=== PATIENT | female | born 1965 | race Caucasian/White ===

== ENCOUNTER 2016-07-03 13:03 | Emergency (ER) | payer OTHER, BC, MEDICARE ==
[~2016-07-03] VITALS: Ht 170.1 cm; Wt 90.7 kg
[~2016-07-03 13:03] MED LIST: CARDIZEM CD120 MG PO; CARDOXIN0.25 MG PO; CELEXA40 MG PO; CLONAZEPAM0.5 MG PO; COZAAR50 MG PO; FOLIC ACID1 MG PO; IBU-8800 MG PO; KEPPRA500 MG PO; LAMICTAL200 MG PO; LAMOTRIGINE150 MG PO; OXCARBAZEPINE300 MG PO; PERCOCET 325 MG1 TA7 PO; PROTONIX40 MG PO; SEROQUEL XR50 MG PO; ZANTAC150 MG PO; ZOFRAN4 MG PO
[2016-07-03 14:21] LABS: BASO % 0.6 % (0.0-1.0); EOS % 0.8 % (1.0-4.0); HEMATOCRIT 38.5 % (37.0-47.0); HEMOGLOBIN 12.6 g/dl (12.0-16.0); LYMPH # 1.2 10*3/uL (1.3-4.4); LYMPH % 23.2 % (27.0-41.0); MEAN CELL VOLUME 85.7 fl (81.0-99.0); MEAN CORPUSCULAR HGB 28.1 pg (27.0-31.0); MEAN CORPUSCULAR HGB CONC 32.7 g/dl (33.0-37.0); MEAN PLATELET VOLUME 8.5 fl (9.6-12.3); MONO # 0.4 10*3/uL (0.1-1.0); MONO % 7.5 % (3.0-9.0); NEUT # 3.5 10*3/uL (2.3-7.9); NEUT % 67.7 % (47.0-73.0); PLATELET COUNT AUTOMATED 295 10*3/uL (130-400); RED BLOOD COUNT 4.49 10*6/uL (4.10-5.10); RED CELL DISTRI WIDTH 13.3 % (0-14.5); WHITE BLOOD COUNT 5.1 10*3/uL (4.8-10.8)
[2016-07-03 14:29] LABS: INTERNATIONAL NORM RATIO 1.4 (2.0-3.5); PROTHROMBIN TIME 14.5 SECONDS (9.0-12.4)
[2016-07-03 14:36] LABS: ALBUMIN 3.6 gm/dl (3.1-4.5); ALKALINE PHOSPHATASE 102 U/L (45-117); BILIRUBIN, TOTAL 0.3 mg/dl (0.2-1.0); BUN 8 mg/dl (7-24); CARBON DIOXIDE 30 mmol/L (21-32); CHLORIDE 96 mmol/L (98-107); EST GLOM FILT AFRICAN AMERICAN > 60 ml/min; GLUCOSE 90 mg/dL (65-99); POTASSIUM 4.1 mmol/L (3.5-5.1); SGOT/AST 13 IU/L (3-35); SGPT/ALT 19 U/L (12-78); SODIUM 134 mmol/L (136-145); TOTAL PROTEIN 7.1 gm/dL (6.4-8.2)
[2016-07-03] MEDS ORDERED: COREG25 MG PO (15:11)
[2016-07-03] MEDS ORDERED: TRILEPTAL300 MG PO (15:12)
[2016-07-03] MEDS ORDERED: APRESOLINE25 MG PO (15:12)
[2016-07-03] MEDS ORDERED: VIIBRYD40 PO (15:13)
[2016-07-03] MEDS ORDERED: NATURE'S BLEND F1 MG PO (15:13)
[2016-07-03] MEDS ORDERED: VALIUM5 MG PO (15:14)
[2016-07-03] MEDS ORDERED: WARFARIN2 MG PO (15:15)
[2016-07-03] MEDS ORDERED: WARFARIN SOD5 MG PO (15:16)
[2016-07-03] MEDS ORDERED: FAMVIR250 MG PO (15:17)
[2016-07-03] MEDS ORDERED: CALCIUM + VITA1 EAC2 PO (15:18)
[2016-07-03 16:00] LABS: BILIRUBIN NEGATIVE (NEGATIVE); BLOOD NEGATIVE (NEGATIVE); CLARITY CLEAR (CLEAR); COLOR YELLOW (YELLOW); GLUCOSE NEGATIVE (NEGATIVE); KETONE NEGATIVE (NEGATIVE); LEUKO ESTERASE NEGATIVE (NEGATIVE); NITRITE NEGATIVE (NEGATIVE); PROTEIN NEGATIVE (NEGATIVE); SPECIFIC GRAVITY <= 1.005 (1.005-1.030); UROBILINOGEN 0.2 E.U./dl (0.2-1.0)
[2016-07-03 16:23] LABS: RBC 0-2 rbc/hpf (0-2); URINE REFLEX COMMENT NO (NO)
== END 2016-07-03 16:57 | disposition home or self-care (01) ==
LOC: ED 13:03
PROVIDERS: Emergency Medicine; Student in an Organized Health Care Education/Training Program
DX: M54.6 Pain in thoracic spine (principal); M54.2 Cervicalgia; M25.511 Pain in right shoulder; R51 Headache; I10 Essential (primary) hypertension; Z79.01 Long term (current) use of anticoagulants; Z79.899 Other long term (current) drug therapy; Z88.0 Allergy status to penicillin; Z88.1 Allergy status to other antibiotic agents; Z88.8 Allergy status to other drugs, medicaments and biological substances; V89.2XXA Person injured in unspecified motor-vehicle accident, traffic, initial encounter; Y93.89 Activity, other specified; Y92.89 Other specified places as the place of occurrence of the external cause; Y99.9 Unspecified external cause status

== ENCOUNTER 2017-01-16 12:51 | Emergency (ER) | payer BC, MEDICARE ==
[~2017-01-16] VITALS: Ht 167.6 cm; Wt 98.0 kg
[~2017-01-16 12:51] MED LIST changes: +APRESOLINE25 MG PO; +CALCIUM + VITA1 EAC2 PO; +COREG25 MG PO; +COZAAR100 MG PO; -COZAAR50 MG PO; +FAMVIR250 MG PO; +NATURE'S BLEND F1 MG PO; +TRILEPTAL300 MG PO; +VALIUM5 MG PO; +VIIBRYD40 PO; +WARFARIN SOD5 MG PO; +WARFARIN2 MG PO
[2017-01-16 13:27] LABS: BILIRUBIN 2+ (NEGATIVE); BLOOD NEGATIVE (NEGATIVE); CLARITY SL CLOUDY (CLEAR); GLUCOSE NEGATIVE (NEGATIVE); KETONE 1+ (NEGATIVE); NITRITE NEGATIVE (NEGATIVE); PROTEIN 1+ (NEGATIVE)
[2017-01-16 13:28] LABS: COLOR YELLOW (YELLOW)
[2017-01-16 13:31] LABS: BASO % 0.5 % (0.0-1.0); EOS # 0.1 10*3/uL (0.0-0.4); EOS % 0.6 % (1.0-4.0); HEMOGLOBIN 11.9 g/dl (12.0-16.0); LYMPH # 1.2 10*3/uL (1.3-4.4); LYMPH % 14.4 % (27.0-41.0); MEAN CELL VOLUME 87.2 fl (81.0-99.0); MEAN CORPUSCULAR HGB 28.8 pg (27.0-31.0); MEAN CORPUSCULAR HGB CONC 33.1 g/dl (33.0-37.0); MEAN PLATELET VOLUME 8.9 fl (9.6-12.3); MONO # 0.5 10*3/uL (0.1-1.0); MONO % 6.4 % (3.0-9.0); NEUT # 6.6 10*3/uL (2.3-7.9); NEUT % 77.9 % (47.0-73.0); PLATELET COUNT AUTOMATED 298 10*3/uL (130-400); RED BLOOD COUNT 4.13 10*6/uL (4.10-5.10); RED CELL DISTRI WIDTH 12.4 % (0-14.5); WHITE BLOOD COUNT 8.4 10*3/uL (4.8-10.8)
[2017-01-16 13:32] LABS: MUCOUS 2+; RBC 0-2 rbc/hpf (0-2)
[2017-01-16 13:33] LABS: BACTERIA TRACE; LEUKO ESTERASE TRACE (NEGATIVE); URINE REFLEX COMMENT YES (NO)
[2017-01-16 13:44] LABS: ALBUMIN 3.4 gm/dl (3.1-4.5); ALKALINE PHOSPHATASE 92 U/L (45-117); BILIRUBIN, TOTAL 0.5 mg/dl (0.2-1.0); BUN 11 mg/dl (7-24); C-REACTIVE PROTEIN 5.29 MG/DL (0-0.3); CARBON DIOXIDE 31 mmol/L (21-32); CHLORIDE 97 mmol/L (98-107); EST GLOM FILT AFRICAN AMERICAN > 60 ml/min; GLUCOSE 108 mg/dL (65-99); MAGNESIUM 1.9 mg/dL (1.5-2.1); SGOT/AST 15 IU/L (3-35); SGPT/ALT 17 U/L (12-78); SODIUM 132 mmol/L (136-145); TOTAL PROTEIN 7.6 gm/dL (6.4-8.2)
[2017-01-16 13:48] LABS: TROPONIN I 0.564 ng/ml (<0.045)
[2017-01-16 15:22] LABS: INTERNATIONAL NORM RATIO 1.6 (2.0-3.5); PROTHROMBIN TIME 17.5 SECONDS (9.0-12.4)
== END 2017-01-16 16:17 | disposition short-term general hospital (02) ==
LOC: ED 12:51
PROVIDERS: Student in an Organized Health Care Education/Training Program
DX: I21.4 Non-ST elevation (NSTEMI) myocardial infarction (principal); Z88.0 Allergy status to penicillin; Z88.1 Allergy status to other antibiotic agents; Z88.8 Allergy status to other drugs, medicaments and biological substances; Z79.899 Other long term (current) drug therapy

== ENCOUNTER 2017-01-22 15:01 | Inpatient (IN) | payer BC, MEDICARE ==
[~2017-01-22] VITALS: Ht 167.6 cm; Wt 98.5 kg
[2017-01-22] VITALS (7 sets, daily range): BP systolic 95–137; BP diastolic 58–113
[2017-01-22 15:50] LABS: BASO % 0.7 % (0.0-1.0); EOS # 0.1 10*3/uL (0.0-0.4); EOS % 1.5 % (1.0-4.0); HEMATOCRIT 36.4 % (37.0-47.0); LYMPH # 1.8 10*3/uL (1.3-4.4); LYMPH % 30.2 % (27.0-41.0); MEAN CELL VOLUME 85.8 fl (81.0-99.0); MEAN CORPUSCULAR HGB 28.3 pg (27.0-31.0); MEAN PLATELET VOLUME 9.1 fl (9.6-12.3); MONO # 0.3 10*3/uL (0.1-1.0); MONO % 5.4 % (3.0-9.0); NEUT # 3.7 10*3/uL (2.3-7.9); PLATELET COUNT AUTOMATED 355 10*3/uL (130-400); RED BLOOD COUNT 4.24 10*6/uL (4.10-5.10); RED CELL DISTRI WIDTH 12.6 % (0-14.5); WHITE BLOOD COUNT 5.9 10*3/uL (4.8-10.8)
[2017-01-22 15:58] LABS: INTERNATIONAL NORM RATIO 2.8 (2.0-3.5); PROTHROMBIN TIME 31.2 SECONDS (9.0-12.4)
[2017-01-22 16:09] LABS: ALBUMIN 3.6 gm/dl (3.1-4.5); ALKALINE PHOSPHATASE 111 U/L (45-117); BILIRUBIN, TOTAL 0.2 mg/dl (0.2-1.0); BUN 13 mg/dl (7-24); CARBON DIOXIDE 28 mmol/L (21-32); CHLORIDE 97 mmol/L (98-107); CKMB 0.7 ng/ml (0.5-3.6); CPK 58 U/L (26-192); EST GLOM FILT AFRICAN AMERICAN > 60 ml/min; GLUCOSE 106 mg/dL (65-99); LDH 206 U/L (84-246); MAGNESIUM 1.8 mg/dL (1.5-2.1); POTASSIUM 4.1 mmol/L (3.5-5.1); SGOT/AST 66 IU/L (3-35); SGPT/ALT 75 U/L (12-78); SODIUM 134 mmol/L (136-145); TOTAL PROTEIN 7.6 gm/dL (6.4-8.2)
[2017-01-22 16:13] LABS: TROPONIN I 0.115 ng/ml (<0.045)
[2017-01-22] MEDS ORDERED: ASPIRIN LOW DOS81 MG PO (18:39)
[2017-01-22] MEDS ORDERED: PLAVIX75 M1 PO (18:40)
[2017-01-22] MEDS ORDERED: PRILOSEC20 M1 PO (18:42)
[2017-01-22] MEDS ORDERED: LIPITOR80 MG PO (18:43)
[2017-01-22] MEDS ORDERED: PROCARDIA XL90 MG PO (18:48)
[2017-01-22 18:49] LABS: CKMB 0.8 ng/ml (0.5-3.6)
[2017-01-22] MEDS ORDERED: ALDACTONE25 M1 PO (18:56)
[2017-01-22] MEDS ORDERED: LOVENOX30 MG/0.3 SQ (18:59)
[2017-01-22 21:34] LABS: CKMB 0.6 ng/ml (0.5-3.6)
[2017-01-23] VITALS: BP 123/89
[2017-01-23 06:09] LABS: BASO % 0.8 % (0.0-1.0); EOS # 0.1 10*3/uL (0.0-0.4); EOS % 2.1 % (1.0-4.0); HEMATOCRIT 32.2 % (37.0-47.0); HEMOGLOBIN 10.5 g/dl (12.0-16.0); LYMPH # 1.9 10*3/uL (1.3-4.4); LYMPH % 36.3 % (27.0-41.0); MEAN CELL VOLUME 87.5 fl (81.0-99.0); MEAN CORPUSCULAR HGB 28.5 pg (27.0-31.0); MEAN CORPUSCULAR HGB CONC 32.6 g/dl (33.0-37.0); MEAN PLATELET VOLUME 8.9 fl (9.6-12.3); MONO # 0.5 10*3/uL (0.1-1.0); MONO % 8.7 % (3.0-9.0); NEUT # 2.7 10*3/uL (2.3-7.9); NEUT % 51.7 % (47.0-73.0); PLATELET COUNT AUTOMATED 293 10*3/uL (130-400); RED BLOOD COUNT 3.68 10*6/uL (4.10-5.10); RED CELL DISTRI WIDTH 12.7 % (0-14.5); WHITE BLOOD COUNT 5.2 10*3/uL (4.8-10.8)
[2017-01-23 06:21] LABS: CHLORIDE 96 mmol/L (98-107); POTASSIUM 3.9 mmol/L (3.5-5.1); SODIUM 132 mmol/L (136-145)
[2017-01-23 06:26] LABS: BUN 15 mg/dl (7-24); CARBON DIOXIDE 27 mmol/L (21-32); EST GLOM FILT AFRICAN AMERICAN > 60 ml/min; GLUCOSE 82 mg/dL (65-99); MAGNESIUM 1.8 mg/dL (1.5-2.1); PHOSPHOROUS 5.2 mg/dL (2.5-4.9)
[2017-01-23 06:38] LABS: INTERNATIONAL NORM RATIO 2.6 (2.0-3.5); PROTHROMBIN TIME 29.4 SECONDS (9.0-12.4)
[2017-01-23 08:00] VITALS: BP 118/84
[2017-01-23 09:57] VITALS: BP 118/84
[2017-01-23 12:00] VITALS: BP 102/72
== END 2017-01-23 15:00 | disposition home or self-care (01) | DRG 880 ==
LOC: ED 15:01 → EDHOLD 17:03 → 5E 17:03
PROVIDERS: Family Medicine; Physician Assistant
DX: F41.9 Anxiety disorder, unspecified (principal); I42.9 Cardiomyopathy, unspecified; T85.898A Other specified complication of other internal prosthetic devices, implants and grafts, initial encounter; I10 Essential (primary) hypertension; K21.9 Gastro-esophageal reflux disease without esophagitis; R07.89 Other chest pain; I25.10 Atherosclerotic heart disease of native coronary artery without angina pectoris; I25.2 Old myocardial infarction; Z98.61 Coronary angioplasty status

== ENCOUNTER 2017-03-30 06:51 | Emergency (ER) | payer BC, MEDICARE ==
[~2017-03-30] VITALS: Ht 167.6 cm; Wt 99.8 kg
[~2017-03-30 06:51] MED LIST changes: +ALDACTONE25 M1 PO; +ASPIRIN LOW DOS81 MG PO; +LIPITOR80 MG PO; +LOVENOX30 MG/0.3 SQ; +PLAVIX75 M1 PO; +PRILOSEC20 M1 PO; +PROCARDIA XL90 MG PO
[2017-03-30 07:14] LABS: BILIRUBIN NEGATIVE (NEGATIVE); BLOOD TRACE-INTACT (NEGATIVE); CLARITY CLOUDY (CLEAR); COLOR YELLOW (YELLOW); GLUCOSE NEGATIVE (NEGATIVE); KETONE NEGATIVE (NEGATIVE); NITRITE POSITIVE (NEGATIVE)
[2017-03-30 07:25] LABS: BASO % 0.8 % (0.0-1.0); EOS # 0.2 10*3/uL (0.0-0.4); EOS % 2.9 % (1.0-4.0); HEMATOCRIT 33.8 % (37.0-47.0); HEMOGLOBIN 11.3 g/dl (12.0-16.0); LYMPH # 1.3 10*3/uL (1.3-4.4); LYMPH % 25.2 % (27.0-41.0); MEAN CELL VOLUME 85.4 fl (81.0-99.0); MEAN CORPUSCULAR HGB 28.5 pg (27.0-31.0); MEAN CORPUSCULAR HGB CONC 33.4 g/dl (33.0-37.0); MEAN PLATELET VOLUME 8.2 fl (9.6-12.3); MONO # 0.4 10*3/uL (0.1-1.0); NEUT # 3.2 10*3/uL (2.3-7.9); NEUT % 62.9 % (47.0-73.0); PLATELET COUNT AUTOMATED 265 10*3/uL (130-400); RED BLOOD COUNT 3.96 10*6/uL (4.10-5.10); RED CELL DISTRI WIDTH 13.1 % (0-14.5); WHITE BLOOD COUNT 5.1 10*3/uL (4.8-10.8)
[2017-03-30 07:33] LABS: LEUKO ESTERASE 3+ (NEGATIVE)
[2017-03-30 07:37] LABS: BACTERIA 3+; WBC TNTC wbc/hpf (0-5)
[2017-03-30 07:43] LABS: ALBUMIN 3.4 gm/dl (3.1-4.5); ALKALINE PHOSPHATASE 110 U/L (45-117); BUN 6 mg/dl (7-24); CHLORIDE 96 mmol/L (98-107); CREATININE 0.86 mg/dL (0.55-1.02); LIPASE 148 U/L (73-393); POTASSIUM 4.3 mmol/L (3.5-5.1); SGOT/AST 16 IU/L (3-35); SGPT/ALT 25 U/L (12-78); SODIUM 131 mmol/L (136-145); TOTAL PROTEIN 7.2 gm/dL (6.4-8.2)
[2017-03-30] MEDS ORDERED: PYRIDIUM200 M1 PO (08:02)
== END 2017-03-30 09:21 | disposition home or self-care (01) ==
LOC: ED 06:51
PROVIDERS: Student in an Organized Health Care Education/Training Program
DX: N39.0 Urinary tract infection, site not specified (principal); R31.9 Hematuria, unspecified; I10 Essential (primary) hypertension; I25.10 Atherosclerotic heart disease of native coronary artery without angina pectoris; I48.91 Unspecified atrial fibrillation; J45.909 Unspecified asthma, uncomplicated; J44.9 Chronic obstructive pulmonary disease, unspecified; Z88.0 Allergy status to penicillin; Z88.1 Allergy status to other antibiotic agents; Z88.8 Allergy status to other drugs, medicaments and biological substances; Z79.899 Other long term (current) drug therapy; Z79.02 Long term (current) use of antithrombotics/antiplatelets; Z79.82 Long term (current) use of aspirin

== ENCOUNTER → 2017-06-20 | Outpatient (CLI) | payer BC, MEDICARE ==
[~2017-06-20] MED LIST changes: +PYRIDIUM200 M1 PO
[2017-06-20 08:37] LABS: ALBUMIN 3.6 gm/dl (3.1-4.5); BILIRUBIN, DIRECT 0.1 mg/dL (0.0-0.2); TOTAL PROTEIN 7.5 gm/dL (6.4-8.2)
== END | disposition home or self-care (01) ==
LOC: LAB 07:39
DX: Z51.89 Encounter for other specified aftercare (principal); Z11.59 Encounter for screening for other viral diseases; I25.119 Atherosclerotic heart disease of native coronary artery with unspecified angina pectoris

== ENCOUNTER 2018-11-20 20:42 | Emergency (ER) | payer MEDICARE, BC ==
[~2018-11-20] VITALS: Ht 167.6 cm; Wt 98.9 kg
--- NOTE | ~2018-11-20 | EKG ---
[place], [place] ELECTROCARDIOGRAM REPORT NAME: MARY JANE LOZADA UNIT #: [id number] ROOM: DOCTOR: EPIPHANY DRAFT REPORT BIRTHDATE: [birth year] [facility] Test Date: 2018-11-20 Test Time: 21:43:58 Pat Name: MARY JANE LOZADA Department: Room: Gender: F Jack Spinner: SS RESP : 1965 Requested By: JENNIFER FAITH Order Number: [id number] Reading MD: Johanna Adams MD Measurements Intervals Woodman Rate: 59 P: 38 SC: 198 QRS: 27 QRSD: 111 T: 269 QT: 408 QTc: 405 Interpretive Statements Sinus rhythm Probable left atrial enlargement Abnormal R-wave progression, late transition Nonspecific T abnormalities, diffuse leads Electronically Signed On 12-03-2018 3:32:45 PDT by Johanna Adams MD CM:EKGRPT:ELECTROCARDIOGRAM REPORT [id number] JENNIFER FAITH MD EPIPHANY DRAFT REPORT JENNIFER FAITH MD
[2018-11-20 21:49] LABS: BASO % 0.6 % (0.0-1.0); EOS # 0.2 10*3/uL (0.0-0.4); EOS % 4.9 % (1.0-4.0); HEMATOCRIT 35.1 % (37.0-47.0); HEMOGLOBIN 11.9 g/dl (12.0-16.0); LYMPH # 1.4 10*3/uL (1.3-4.4); MEAN CELL VOLUME 87.8 fl (81.0-99.0); MEAN CORPUSCULAR HGB 29.8 pg (27.0-31.0); MEAN CORPUSCULAR HGB CONC 33.9 g/dl (33.0-37.0); MEAN PLATELET VOLUME 9.1 fl (9.6-12.3); MONO # 0.4 10*3/uL (0.1-1.0); MONO % 9.2 % (3.0-9.0); NEUT # 2.6 10*3/uL (2.3-7.9); NEUT % 56.3 % (47.0-73.0); PLATELET COUNT AUTOMATED 291 10*3/uL (130-400); RED CELL DISTRI WIDTH 13.4 % (0-14.5); WHITE BLOOD COUNT 4.7 10*3/uL (4.8-10.8)
[2018-11-20 22:03] LABS: INTERNATIONAL NORM RATIO 2.5 (2.0-3.5)
[2018-11-20 22:53] LABS: ALBUMIN 3.6 gm/dl (3.1-4.5); ALKALINE PHOSPHATASE 118 U/L (45-117); BUN 8 mg/dl (7-24); CHLORIDE 97 mmol/L (98-107); CREATININE 0.82 mg/dL (0.55-1.02); POTASSIUM 3.7 mmol/L (3.5-5.1); SGOT/AST 13 IU/L (3-35); SGPT/ALT 24 U/L (12-78); SODIUM 132 mmol/L (136-145); TOTAL PROTEIN 7.3 gm/dL (6.4-8.2)
[2018-11-20] MEDS ORDERED: PREDNISONE20 M1 PO (23:34)
[2018-11-20] MEDS ORDERED: LEVOFLOXACIN500 MG PO (23:34)
== END 2018-11-21 00:02 | disposition home or self-care (01) ==
LOC: ED 20:42
PROVIDERS: Emergency Medicine Emergency Medical Services
DX: J21.9 Acute bronchiolitis, unspecified (principal); I48.91 Unspecified atrial fibrillation; I25.10 Atherosclerotic heart disease of native coronary artery without angina pectoris; I10 Essential (primary) hypertension; K21.9 Gastro-esophageal reflux disease without esophagitis; I25.2 Old myocardial infarction; Z88.0 Allergy status to penicillin; Z88.1 Allergy status to other antibiotic agents; Z88.8 Allergy status to other drugs, medicaments and biological substances; Z86.73 Personal history of transient ischemic attack (TIA), and cerebral infarction without residual deficits; Z79.01 Long term (current) use of anticoagulants; Z79.899 Other long term (current) drug therapy

== ENCOUNTER 2020-01-29 16:45 | Inpatient (IN) | payer MEDICARE, BC ==
[~2020-01-29] VITALS: Ht 167.6 cm; Wt 100.9 kg
[~2020-01-29 16:45] MED LIST changes: +LEVOFLOXACIN500 MG PO; +PREDNISONE20 M1 PO
[2020-01-29 16:52] VITALS: BP 111/80
--- NOTE | 2020-01-29 16:58 | NUR ---
PT HAS DIARRHEA, AMBULATED TO BATHROOM SOON SHE ARRIVED TO EXAM ROOM.
[2020-01-29 17:19] LABS: BASO % 0.2 % (0.0-1.0); EOS # 0.1 10*3/uL (0.0-0.4); EOS % 1.4 % (1.0-4.0); HEMATOCRIT 34.1 % (37.0-47.0); LYMPH # 1.4 10*3/uL (1.3-4.4); LYMPH % 17.1 % (27.0-41.0); MEAN CELL VOLUME 84.4 fl (81.0-99.0); MEAN CORPUSCULAR HGB 29.5 pg (27.0-31.0); MEAN CORPUSCULAR HGB CONC 34.9 g/dl (33.0-37.0); MEAN PLATELET VOLUME 8.6 fl (9.6-12.3); MONO # 1.1 10*3/uL (0.1-1.0); MONO % 13.1 % (3.0-9.0); NEUT # 5.6 10*3/uL (2.3-7.9); NEUT % 67.8 % (47.0-73.0); PLATELET COUNT AUTOMATED 254 10*3/uL (130-400); RED BLOOD COUNT 4.04 10*6/uL (4.10-5.10); RED CELL DISTRI WIDTH 12.6 % (0-14.5); WHITE BLOOD COUNT 8.3 10*3/uL (4.8-10.8)
[2020-01-29 17:36] LABS: ALKALINE PHOSPHATASE 109 U/L (45-117); BUN 7 mg/dl (7-24); CHLORIDE 88 mmol/L (98-107); CREATININE 0.82 mg/dL (0.55-1.02); POTASSIUM 3.7 mmol/L (3.5-5.1); SGOT/AST 12 IU/L (3-35); SGPT/ALT 18 U/L (12-78); SODIUM 122 mmol/L (136-145); TOTAL PROTEIN 7.2 gm/dL (6.4-8.2); TROPONIN I < 0.015 ng/ml (<0.045)
[2020-01-29 17:37] LABS: ACT PARTIAL THROMBO TIME 48.4 SECONDS (20.0-32.1)
--- NOTE | 2020-01-29 18:47 | NUR ---
C/O GI UPSET CONTINUES.
--- NOTE | 2020-01-29 19:28 | NUR ---
Trasnfer of care from [facility].
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
--- NOTE | 2020-01-29 19:39 | NUR ---
In to see pt at this time.Pt states she feels miserbale at this time but denines chest pain at this time.Pt has 22 gauge infusing iv fluids in right ac at this time.Pt has clear lung sounds and bowel spounds at this time.
[2020-01-29 19:40] VITALS: BP 111/59
--- NOTE | 2020-01-29 21:25 | NUR ---
PT REPORTS ABDOMINAL PAIN 5 OUT OF 10. SEE EMAR.
--- NOTE | 2020-01-29 21:30 | NUR ---
CALLED THE FLOOR FOR BARRIER CREAM.
--- NOTE | 2020-01-29 21:31 | NUR ---
PROVIDED PATIENT WITH WASH CLOTHES AND BARRIER CREAM, PER PT REQUEST FOR SORENESS D/T FREQUENT DIARRHEA.
[2020-01-29 21:46] VITALS: BP 116/81
--- NOTE | 2020-01-29 22:09 | NUR ---
Attempted to call floor and no answer at this time.
--- NOTE | 2020-01-29 22:22 | NUR ---
Called [facility] unable to take pt at this time.Stated she will call back when ready.
--- NOTE | 2020-01-29 22:22 | NUR ---
Spoke to Sangita supervisory investigative specialist aware pt cannot go to floor at this time.
[2020-01-29 22:30] VITALS: BP 102/70
--- NOTE | 2020-01-29 22:31 | NUR ---
In to see pt at this time.Pt states paim is better and diarrheoa has stopped per pt.Pt states she does not need anything at this time,
--- NOTE | 2020-01-29 22:45 | NUR ---
Pt states rectum is red and sore from bowel movements.No wounds noted at this time.
--- NOTE | 2020-01-29 22:50 | NUR ---
Pt taken to floor in stretcher.
[2020-01-29 22:56] VITALS: BP 125/83
--- NOTE | 2020-01-29 22:56 | NUR ---
A 54, admitted to , under the services of JOSE Stephens DO with a diagnosis of HYPONATREMIA, DIVERTICULITIS, CHEST PAIN. Chief complaint is DIARRHEA, DIZZINESS, CHEST PAIN. Patient arrived via wheel chair from ER. Monitor applied. Initial assessment completed. Vital signs taken and recorded. JOSE STEPHENS DO notified of admission to the unit. Orders received. See assessment for past medical history, medications and allergies. Patient and/or family oriented to unit. [facility] visitation policy reviewed. Clothing/patient valuable form completed. LEXUS LAWRENCE
--- NOTE | 2020-01-29 23:28 | NUR ---
Dr. AMBROSE consulted for DIVERTICULITIS. LEXUS LAWRENCE
[2020-01-29] MEDS ORDERED: TRILEPTAL PO (23:35)
[2020-01-29] MEDS ORDERED: ACYCLOVIR SODI500 MG PO (23:42)
[2020-01-29] MEDS ORDERED: KEPPRA500 MG PO (23:42)
[2020-01-29] MEDS ORDERED: CRESTOR5 MG PO (23:43)
--- NOTE | 2020-01-29 23:50 | NUR ---
DR. RIVERA NOTIFIED OF PT'S MED REC UTD AND PT REQUESTING MEDICATION FOR ABD CRAMPING AND DIARRHEA.
[2020-01-30] VITALS: BP 125/83
--- NOTE | 2020-01-30 02:45 | NUR ---
PT C/O ABD PAIN AND BUTTOCKS PAIN D/T FREQUENT EPISODES OF WATERY STOOL. MEDICATED W/NORCO.
--- NOTE | 2020-01-30 03:45 | NUR ---
PT RESTING QUEITLY IN BED. PRN NORCO EFFECTIVE. NO S/S OF DISTRESS NOTED.
[2020-01-30 06:27] LABS: BASO % 0.5 % (0.0-1.0); EOS # 0.2 10*3/uL (0.0-0.4); EOS % 3.1 % (1.0-4.0); HEMATOCRIT 31.2 % (37.0-47.0); LYMPH # 1.1 10*3/uL (1.3-4.4); LYMPH % 16.5 % (27.0-41.0); MEAN CELL VOLUME 83.6 fl (81.0-99.0); MEAN CORPUSCULAR HGB 28.2 pg (27.0-31.0); MEAN CORPUSCULAR HGB CONC 33.7 g/dl (33.0-37.0); MEAN PLATELET VOLUME 9.2 fl (9.6-12.3); NEUT # 4.2 10*3/uL (2.3-7.9); NEUT % 64.6 % (47.0-73.0); PLATELET COUNT AUTOMATED 251 10*3/uL (130-400); RED BLOOD COUNT 3.73 10*6/uL (4.10-5.10); RED CELL DISTRI WIDTH 12.4 % (0-14.5); WHITE BLOOD COUNT 6.5 10*3/uL (4.8-10.8)
[2020-01-30 06:50] LABS: ALBUMIN 2.6 gm/dl (3.1-4.5); ALKALINE PHOSPHATASE 100 U/L (45-117); BUN 4 mg/dl (7-24); CHLORIDE 93 mmol/L (98-107); CHOLESTEROL 100 mg/dL (<200); CREATININE 0.63 mg/dL (0.55-1.02); HDL CHOLESTEROL 42 mg/dl (40-60); LDL CHOLESTEROL 47 mg/dL (9-159); POTASSIUM 3.2 mmol/L (3.5-5.1); SGOT/AST 20 IU/L (3-35); SGPT/ALT 23 U/L (12-78); SODIUM 127 mmol/L (136-145); TOTAL PROTEIN 6.4 gm/dL (6.4-8.2); TRIGLYCERIDES 53 mg/dl (<150); VLDL CHOLESTEROL 11 mg/dL (6-40)
[2020-01-30 07:02] LABS: INTERNATIONAL NORM RATIO 2.9 (2.0-3.5)
[2020-01-30 07:56] LABS: VITAMIN D, 25-HYDROXY 47.4 ng/mL (30-100)
[2020-01-30 08:00] VITALS: BP 130/77
--- NOTE | 2020-01-30 08:41 | NUR ---
PT MEDICATED WITH PRN NORCO FOR C/O ABDOMINAL CRAMPING. PT RATES PAIN 12/24. WILL MONITOR.
--- NOTE | 2020-01-30 09:15 | NUR ---
PRN NORCO EFFECTIVE PER PT.
--- NOTE | 2020-01-30 11:01 | NUR ---
Event Decorator And Designer in to talk to patient this a.m. Pt. resting in bed. 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 There are 0 steps in the home. Physician: DR. SANCHEZ Pharmacy: [facility] services: NONE Patient's level of ADLs: INDEPENDENT Patient has working utilities: yes DME: NONE Follow-up physician's appointment after d/c: PER HOSPITALIST OFFICE Does patient want to access PORTAL?: YES Discharge plan PT. IS INDEPENDENT AT HOME. 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 PT. STATES THAT SHE WILL RETURN HOME AT DISCHARGE. SHE WILL FOLLOW WITH HER PRIMARY CARE PHYSICIAN DR. SANCHEZ. PT. IS ALSO A NURSE AND PT. STILL WORKS AND DRIVES AND IS INDEPENDENT IN ALL AREAS OF ADL'S. Notified Nurse that Pt. would benefit from Dietary Consult for Diverticulosis Diet Instructions. AYANNA RDZ
[2020-01-30 12:00] VITALS: BP 132/86
--- NOTE | 2020-01-30 15:48 | NUR ---
PT MEDICATED WITH PRN NORCO FOR C/O ABDOMINAL PAIN. PT RATES PAIN 12/24. WILL MONITOR.
[2020-01-30 16:00] VITALS: BP 130/78
--- NOTE | 2020-01-30 16:30 | NUR ---
PT RESTING IN BED. NORCO EFFECTIVE PER HER.
--- NOTE | 2020-01-30 19:38 | NUR ---
24 HR CHART CHECK COMPLETE.
--- NOTE | 2020-01-30 19:56 | NUR ---
PT MEDICATED WITH PRN NORCO FOR C/O ABDOMINAL PAIN RATED 8/10. WILL MONITOR FOR EFFECTIVENESS.
[2020-01-30 20:00] VITALS: BP 105/65; BP 94/65
--- NOTE | 2020-01-30 20:45 | NUR ---
PT ASLEEP IN BED AT THIS TIME NO S/S OF DISTRESS NOTED. PRN NORCO APPEARS EFFECTIVE. WILL CONTINUE TO MONITOR.
[2020-01-31] VITALS: BP 92/52
--- NOTE | 2020-01-31 04:19 | NUR ---
PT MEDICATED WITH PRN NORCO FOR C/O ABDOMINAL PAIN RATED 8/10. WILL MONITOR FOR EFFECTIVENESS.
--- NOTE | 2020-01-31 05:00 | NUR ---
PT ASLEEP IN BED AT THIS TIME. NO S/S OF DISTRESS NOTED. PRN NORCO EFFECTIVE.
[2020-01-31 06:30] LABS: BASO % 0.7 % (0.0-1.0); EOS # 0.3 10*3/uL (0.0-0.4); EOS % 5.9 % (1.0-4.0); HEMATOCRIT 30.6 % (37.0-47.0); LYMPH # 1.3 10*3/uL (1.3-4.4); LYMPH % 28.4 % (27.0-41.0); MEAN CORPUSCULAR HGB 28.9 pg (27.0-31.0); MEAN CORPUSCULAR HGB CONC 33.7 g/dl (33.0-37.0); MEAN PLATELET VOLUME 9.1 fl (9.6-12.3); MONO # 0.8 10*3/uL (0.1-1.0); MONO % 16.8 % (3.0-9.0); NEUT # 2.2 10*3/uL (2.3-7.9); PLATELET COUNT AUTOMATED 236 10*3/uL (130-400); RED BLOOD COUNT 3.56 10*6/uL (4.10-5.10); RED CELL DISTRI WIDTH 12.8 % (0-14.5); WHITE BLOOD COUNT 4.6 10*3/uL (4.8-10.8)
[2020-01-31 06:32] LABS: INTERNATIONAL NORM RATIO 3.4 (2.0-3.5)
[2020-01-31 06:58] LABS: ALBUMIN 2.7 gm/dl (3.1-4.5); ALKALINE PHOSPHATASE 96 U/L (45-117); BUN 3 mg/dl (7-24); CHLORIDE 99 mmol/L (98-107); CREATININE 0.59 mg/dL (0.55-1.02); POTASSIUM 3.3 mmol/L (3.5-5.1); SGOT/AST 16 IU/L (3-35); SGPT/ALT 19 U/L (12-78); SODIUM 131 mmol/L (136-145); TOTAL PROTEIN 6.1 gm/dL (6.4-8.2)
[2020-01-31 08:00] VITALS: BP 99/60
--- NOTE | 2020-01-31 08:00 | NUR ---
PT AWAKE, ALERT AND ORIENTED SITTING UP BED. NO STATED COMPLAINTS AT THIS TIME. RESPIRATIONS ARE EASY AND REGULAR ON ROOM AIR. NO SOB NOTED. PT IS ABLE TO REPOSIION SELF AND IS ENCOURAGED TO DO SO. BED IN LOWEST LOCKED POSITION AND CALL LIGHT WITHIN REACH. WILL CONTINUE TO MONITOR.
--- NOTE | 2020-01-31 09:14 | NUR ---
PT COMPLAINS OF LOWER ABDOMINAL PAIN RATED AT A 6. PRN NORCO ADMINISTERED AT THIS TIME. WILL MONITOR FOR EFFECTIVENESS.
--- NOTE | 2020-01-31 10:14 | NUR ---
PT STATES NORCO WAS EFFECTIVE.
[2020-01-31 12:00] VITALS: BP 96/50
--- NOTE | 2020-01-31 13:50 | NUR ---
PT COMPLAINS OF NAUSEA AND VOMITING. PRN ZOFRAN ADMINISTERED AT THIS TIME. WILL MONITOR FOR EFFECTIVENESS.
--- NOTE | 2020-01-31 14:50 | NUR ---
PT ASLEEP. PRN ZOFRAN CONSIDERED EFFECTIVE.
[2020-01-31 16:00] VITALS: BP 92/60
--- NOTE | 2020-01-31 17:45 | NUR ---
DR. NANCE CALLED REGARDING PT'S COMPLAINTS OF NAUSEA AND VOMITING AFTER EATING. NO NEW ORDERS OBTAINED. WILL CONTINUE TO MONITOR. CALL LIGHT WITHIN REACH.
--- NOTE | 2020-01-31 19:58 | NUR ---
PT IS SITTING UP IN BED WATCHING TV AT THIS TIME. SHE STATES THAT SHE HAS BEEN UNABLE TO KEEP ANY SOLID FOOD DOWN TODAY ALTHOUGH SHE IS FEELING OKAY AT THIS TIME. NO C/O ABDOMINAL PAIN VOICED, RESPS ARE EASY AND NONLABORED. BED LOW, CALL LIGHT WITHIN REACH. WILL CONTINUE TO MONITOR.
[2020-01-31 20:00] VITALS: BP 120/66
[2020-02-01] VITALS: BP 112/65
[2020-02-01 06:20] LABS: BASO % 0.8 % (0.0-1.0); EOS # 0.2 10*3/uL (0.0-0.4); EOS % 4.9 % (1.0-4.0); HEMATOCRIT 32.6 % (37.0-47.0); LYMPH # 1.3 10*3/uL (1.3-4.4); LYMPH % 35.3 % (27.0-41.0); MEAN CORPUSCULAR HGB 28.5 pg (27.0-31.0); MEAN CORPUSCULAR HGB CONC 33.1 g/dl (33.0-37.0); MEAN PLATELET VOLUME 8.9 fl (9.6-12.3); MONO # 0.5 10*3/uL (0.1-1.0); MONO % 12.8 % (3.0-9.0); NEUT # 1.7 10*3/uL (2.3-7.9); NEUT % 45.1 % (47.0-73.0); PLATELET COUNT AUTOMATED 287 10*3/uL (130-400); RED BLOOD COUNT 3.79 10*6/uL (4.10-5.10); RED CELL DISTRI WIDTH 13.1 % (0-14.5); WHITE BLOOD COUNT 3.7 10*3/uL (4.8-10.8)
[2020-02-01 06:38] LABS: BUN 1 mg/dl (7-24); CHLORIDE 102 mmol/L (98-107); CREATININE 0.61 mg/dL (0.55-1.02); POTASSIUM 3.5 mmol/L (3.5-5.1); SODIUM 136 mmol/L (136-145)
[2020-02-01 06:51] LABS: INTERNATIONAL NORM RATIO 3.6 (2.0-3.5)
[2020-02-01 08:00] VITALS: BP 102/50
--- NOTE | 2020-02-01 08:14 | NUR ---
Nursing screen received and chart reviewed. Patient admitted for diverticulitis and hyponatremia. If patient has a decline in ADLs, transfers, or functional mobility, please consult OT. Thank you. Karlee Menchaca, OTR/L
--- NOTE | 2020-02-01 09:00 | NUR ---
case management visits with patient, she was ambulating in room, she states she will return home when discharged and denies any home needs, case management will follow
--- NOTE | 2020-02-01 10:30 | NUR ---
DR. SHORE NOTIFIED OF PT VOMITING AFTER BREAKFAST. NO NEW ORDERS
[2020-02-01 12:00] VITALS: BP 108/62
--- NOTE | 2020-02-01 14:28 | NUR ---
DR. SHORE NOTIFIED OF PT VOMITING AFTER LUNCH AND THAT PT IS NOT HAVING BOWEL MOVEMENTS. NO NEW ORDERS WILL CONTINUE TO MONITOR.
[2020-02-01] MEDS ORDERED: VANCOMYCIN HCL125 MG PO (14:42)
[2020-02-01] MEDS ORDERED: ZOFRAN4 MG PO (14:42)
--- NOTE | 2020-02-01 17:30 | NUR ---
Discharge instructions reviewed with patient/family. Patient receptive and verbalizes understanding. Follow-up care arranged. Written instructions given to patient/family. ALVIN AWAD
== END 2020-02-01 17:43 | disposition home or self-care (01) | DRG 371 ==
LOC: ED 16:45 → 4E 20:20 → EDHOLD 20:20 → 4E 22:03
PROVIDERS: Emergency Medicine; Family Medicine; Internal Medicine; Nurse Practitioner Family; Student in an Organized Health Care Education/Training Program; ADMIT Emergency Medicine
DX: A04.72 Enterocolitis due to Clostridium difficile, not specified as recurrent (principal); E43 Unspecified severe protein-calorie malnutrition; K57.32 Diverticulitis of large intestine without perforation or abscess without bleeding; E87.1 Hypo-osmolality and hyponatremia; E72.12 Methylenetetrahydrofolate reductase deficiency; I42.9 Cardiomyopathy, unspecified; D68.59 Other primary thrombophilia; I50.9 Heart failure, unspecified; R00.1 Bradycardia, unspecified; I25.119 Atherosclerotic heart disease of native coronary artery with unspecified angina pectoris; J44.9 Chronic obstructive pulmonary disease, unspecified; J45.909 Unspecified asthma, uncomplicated; F41.9 Anxiety disorder, unspecified; K21.9 Gastro-esophageal reflux disease without esophagitis; G62.9 Polyneuropathy, unspecified; D64.9 Anemia, unspecified; D72.821 Monocytosis (symptomatic); E87.8 Other disorders of electrolyte and fluid balance, not elsewhere classified; I48.0 Paroxysmal atrial fibrillation; F32.5 Major depressive disorder, single episode, in full remission; I11.0 Hypertensive heart disease with heart failure; E87.6 Hypokalemia; Z79.01 Long term (current) use of anticoagulants; Z88.0 Allergy status to penicillin; Z88.8 Allergy status to other drugs, medicaments and biological substances; Z90.721 Acquired absence of ovaries, unilateral; Z90.49 Acquired absence of other specified parts of digestive tract; Z90.710 Acquired absence of both cervix and uterus; Z82.49 Family history of ischemic heart disease and other diseases of the circulatory system; Z83.6 Family history of other diseases of the respiratory system; Z86.73 Personal history of transient ischemic attack (TIA), and cerebral infarction without residual deficits; Z86.718 Personal history of other venous thrombosis and embolism; I25.2 Old myocardial infarction; Z68.35 Body mass index [BMI] 35.0-35.9, adult; Z79.899 Other long term (current) drug therapy

== ENCOUNTER → 2020-02-04 | Outpatient (CLI) | payer MEDICARE, BC ==
[~2020-02-04] MED LIST changes: +ACYCLOVIR SODI500 MG PO; +CRESTOR5 MG PO; +TRILEPTAL PO; +VANCOMYCIN HCL125 MG PO
[2020-02-04 14:07] LABS: BASO # 0.1 10*3/uL (0.0-0.1); BASO % 0.9 % (0.0-1.0); EOS # 0.1 10*3/uL (0.0-0.4); EOS % 1.9 % (1.0-4.0); HEMATOCRIT 38.6 % (37.0-47.0); LYMPH # 1.5 10*3/uL (1.3-4.4); LYMPH % 25.6 % (27.0-41.0); MEAN CORPUSCULAR HGB 28.3 pg (27.0-31.0); MEAN CORPUSCULAR HGB CONC 32.9 g/dl (33.0-37.0); MEAN PLATELET VOLUME 8.6 fl (9.6-12.3); MONO # 0.5 10*3/uL (0.1-1.0); MONO % 8.7 % (3.0-9.0); NEUT # 3.5 10*3/uL (2.3-7.9); NEUT % 60.5 % (47.0-73.0); PLATELET COUNT AUTOMATED 404 10*3/uL (130-400); RED BLOOD COUNT 4.49 10*6/uL (4.10-5.10); RED CELL DISTRI WIDTH 12.7 % (0-14.5); WHITE BLOOD COUNT 5.9 10*3/uL (4.8-10.8)
[2020-02-04 14:36] LABS: ALBUMIN 3.4 gm/dl (3.1-4.5); ALKALINE PHOSPHATASE 114 U/L (45-117); BUN 7 mg/dl (7-24); CHLORIDE 93 mmol/L (98-107); CREATININE 0.86 mg/dL (0.55-1.02); POTASSIUM 3.4 mmol/L (3.5-5.1); SGOT/AST 20 IU/L (3-35); SGPT/ALT 27 U/L (12-78); SODIUM 132 mmol/L (136-145); TOTAL PROTEIN 7.7 gm/dL (6.4-8.2)
[2020-02-04 14:38] LABS: INTERNATIONAL NORM RATIO 2.9 (2.0-3.5)
== END | disposition home or self-care (01) ==
LOC: LAB 13:10
PROVIDERS: Internal Medicine
DX: A04.72 Enterocolitis due to Clostridium difficile, not specified as recurrent (principal); E78.6 Lipoprotein deficiency; D64.9 Anemia, unspecified; R79.1 Abnormal coagulation profile

== ENCOUNTER → 2020-03-11 | Outpatient (CLI) | payer MEDICARE, BC ==
[~2020-03-11] MED LIST changes: +NITROSTAT0.3 M1 SL; +VALTREX500 MG PO
== END ==
LOC: COVID19 02:41
PROVIDERS: ATTEND Surgery
DX: Z01.812 Encounter for preprocedural laboratory examination (principal); Z20.828 Contact with and (suspected) exposure to other viral communicable diseases

== ENCOUNTER → 2020-03-17 | Day surgery (SDC) | payer MEDICARE, BC ==
[~2020-03-17] VITALS: Ht 167.6 cm; Wt 97.5 kg
[~2020-03-17] MED LIST changes: +CARAFATE1 G1 PO
[2020-03-17 08:06] VITALS: BP 139/88
[2020-03-17 08:30] VITALS: BP 118/81
[2020-03-17 08:45] VITALS: BP 121/83
[2020-03-17 09:00] VITALS: BP 135/89
== END | disposition home or self-care (01) ==
LOC: SDC 03-11 10:15
PROVIDERS: ATTEND Surgery
DX: Z12.11 Encounter for screening for malignant neoplasm of colon (principal); K57.92 Diverticulitis of intestine, part unspecified, without perforation or abscess without bleeding; K29.50 Unspecified chronic gastritis without bleeding; I25.2 Old myocardial infarction; I48.91 Unspecified atrial fibrillation; J45.909 Unspecified asthma, uncomplicated; F41.9 Anxiety disorder, unspecified; F32.9 Major depressive disorder, single episode, unspecified; G43.909 Migraine, unspecified, not intractable, without status migrainosus; J44.9 Chronic obstructive pulmonary disease, unspecified; E78.5 Hyperlipidemia, unspecified; I11.0 Hypertensive heart disease with heart failure; I50.9 Heart failure, unspecified; Z98.890 Other specified postprocedural states; Z79.899 Other long term (current) drug therapy; Z88.0 Allergy status to penicillin

== ENCOUNTER 2020-03-25 05:40 | Inpatient (IN) | payer MEDICARE, BC ==
[~2020-03-25] VITALS: Ht 167.6 cm; Wt 92.5 kg
--- NOTE | 2020-03-25 07:29 | NUR ---
REPORT TAKEN FROM JAYCE
--- NOTE | 2020-03-25 07:37 | NUR ---
THE PATIENT DOES NOT WANT TO TAKE THE POTASSIUM DUE TO NAUSEA. SHE DID SAY SHE WILL TAKE IT LATER.
--- NOTE | 2020-03-25 11:50 | NUR ---
Time: 0 A 54 year old FEMALE admitted to under services of LAURYN CARMICHAEL DO. Pt. arrived via stretcher from ER. Chief complaint: ABDOMINAL PAIN, MEDICATIONS REC. COMPLETED NOTIFIED.. MARGARETH QUIROS
--- NOTE | 2020-03-25 13:00 | NUR ---
SPOKE TO DR. VILLEGAS, INQUIRED ABOUT IF THEY WANTED THE NG TUBE PLACED, HE VERSED NO WE WAIT FOR NOW.
--- NOTE | 2020-03-25 15:54 | NUR ---
PATIENT C/O SHARP, CRAMPING, STABBING PAIN RLQ RATES PAIN 9/10 MEDICATED WITH MORPHINE ORDERED PRN.
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
--- NOTE | 2020-03-25 19:01 | NUR ---
PATIENT C/O ABD PAIN RATES PAIN CRAMPING STABBING RATES 8/10 MEDICATED WITH NORCO ORDERED PRN, WHITE BOARD UPDATED.
--- NOTE | 2020-03-25 20:00 | NUR ---
MEDICATION EFFECTIVE FOR PAIN. RESTING WELL.
--- NOTE | 2020-03-25 21:22 | NUR ---
MEDICATED WITH IV MORPHINE ORDERED PER PT REQUEST FOR C/O DIFFUSE PAIN TO ABDOMEN RATED 7/10.
--- NOTE | 2020-03-25 22:15 | NUR ---
MEDICATION EFFECTIVE FOR PAIN.
--- NOTE | 2020-03-26 | NUR ---
Patient resting quietly with no c/o discomfort. Respirations easy and regular. Vital signs stable. No overt distress. GUERO TAYLOR
--- NOTE | 2020-03-26 04:41 | NUR ---
24 HR chart check completed.
--- NOTE | 2020-03-26 05:38 | NUR ---
MEDICATED WITH IV MORPHINE ORDERED PER PT REQUEST FOR C/O 12/24 PAIN TO ABDOMEN.
--- NOTE | 2020-03-26 06:45 | NUR ---
MEDICATION EFFECTIVE FOR PAIN.
--- NOTE | 2020-03-26 08:00 | NUR ---
Meeting Planner in to talk to patient. Patient states lives at home with her , son, [id number], and elderly mother. There are basement steps in the home. Physician: Dr. Kaden Duffy Pharmacy: [facility] Home health services: none Patient's level of ADLs: INDEPENDENT Patient has working utilities: yes DME: none Follow-up physician's appointment after d/c: will be made by the hospitalist nurse director upon discharge Does patient want to access PORTAL?: no Discharge plan discussed with patient. She lives at home with her family. She takes care of her elderly mother. She is concerned about how long she will be in the hospital because of taking care of her mother. She states her and [id number] will provide care for her but it's not the same. She states she doesn't have outside assistance for her mother and is not interested in any at this time. Discussed home health care services for herself and she declines. CM will continue to follow for any discharge planning needs. When medically stable she will be discharged to home. She states her will provide transportation on discharge. SUZANNE MAZARIEGOS
--- NOTE | 2020-03-26 15:00 | NUR ---
PATIENT REPORTED PAIN RELIEF AFTER GIVEN PRN DOSE OF NORCO
--- NOTE | 2020-03-26 17:33 | NUR ---
MICRO CALLED WITH POSITIVE CDIFF RESULT. NOTIFIED DR. VILLEGAS TEAM.
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
--- NOTE | 2020-03-26 21:10 | NUR ---
PRN NORCO GIVEN FOR PT COMPLAINTS OF 7/10 LOWER QUADRANT ABDOMINAL PAIN. CALL LIGHT WITHIN REACH, WILL MONITOR
--- NOTE | 2020-03-26 22:00 | NUR ---
PRN MEDICATION APPEARS EFFECTIVE, PT SLEEPING
--- NOTE | 2020-03-26 22:27 | NUR ---
24 HR chart check completed.
--- NOTE | 2020-03-27 01:07 | NUR ---
PATIENT SLEEPING, NO DISTRES NOTED, BREATHING IS EASY AND REGULAR. CALL LIGHT WITHIN REACH, WILL MONITOR
--- NOTE | 2020-03-27 03:43 | NUR ---
PATIENT CONTINUES TO SLEEP. NO DISTRESS NOTED. BREATHING IS EASY AND REGULAR. CALL LIGHT WITHN REACH, WILL MONITOR
--- NOTE | 2020-03-27 06:37 | NUR ---
PATIENT COMPLAINING OF WATERY EYES AND STATES SHE THINKS THAT HER EYES MIGHT BE TOO DRY AND WAS ASKING FOR REWETTING DROPS. ORDER RECIEVED FROM DR. DIETRICH FOR VISINE BID PRN.
--- NOTE | 2020-03-27 07:42 | NUR ---
24 HR chart check completed.
--- NOTE | 2020-03-27 08:45 | NUR ---
RESTING IN BED. RESPIRATIONS EASY. LUNGS DIMINISHED, CLEAR. PULSE OX 95% RA. ABD SOFT WITH NORMO/HYPER BOWEL SOUNDS - CLAIMS DIARRHEA X 4. CALL LIGHT WITHIN REACH. NO VOICED COMPLAINTS
--- NOTE | 2020-03-27 10:00 | NUR ---
DECLINES TEDS/SCDS
--- NOTE | 2020-03-27 11:00 | NUR ---
DECLINES VIT K. INR YESTERDAY 4.5, TODAY 3.6. PER PATIENT, DR WANTS HER ON HIGH SIDE OF NORMAL D/T HX OF CLOTS.
--- NOTE | 2020-03-27 12:51 | NUR ---
REQUESTED AND RECEIVED NORCO PER PRN ORDER FOR COMPLAINTS OF LEFT SIDED AND LOWER ABD PAIN RATING A 6. CALL LIGHT WITHIN REACH. WILL MONITOR
--- NOTE | 2020-03-27 13:30 | NUR ---
EARLIER MEDS APPEAR EFFECTIVE, RESTING WITH EYES CLOSED. RESPIRATIONS EASY. CALL LIGHT WITHIN REACH.
--- NOTE | 2020-03-27 14:00 | NUR ---
RESTING IN BED. NO DISTRESS NOTED. CALL LIGHT WITHIN REACH. NO VOICED COMPLAINTS
--- NOTE | 2020-03-27 18:30 | NUR ---
CONSULT CALLED TO INFECTIOUS DISEASE ANSWERING SERVICE. MESSAGE LEFT. PER ANSWERING SERVICE, PARDEEP SLATER PIPE WASHER. AWAITING RETURN CALL
--- NOTE | 2020-03-27 19:27 | NUR ---
PARDEEP SLATER WITH INFECTIONS DISEASE CALLED AND CONSULT COMPLETED. ORDERED TO INCREASED PO VANCOMYCIN TO 250MG PO Q6H.
--- NOTE | 2020-03-27 21:30 | NUR ---
ASSUMED CARE OF PATIENT. PATIENT IS AAOX3 RESTING IN BED WITH EASY AND REGULAR RESPERS ON ROOM AIR. ASSESSMENT IS COMPLETE WITH NO S/S OF DISTRESS NOTED AT THIS TIME. PATIENT C/O PAIN TO LOWER ABDOMEN RADIATING TO BACK. BED IS LOW, LOCKED, AND CALL LIGHT IS WITHIN REACH. WILL CONTINUE TO MONITOR, SEE INTERVENTIONS.
--- NOTE | 2020-03-27 21:54 | NUR ---
PRN NORCO GIVEN AT THIS TIME FOR LOWER ABDOMINAL PAIN RADIATIING TO BACK. CALL LIGHT IS WITHIN REACH. WILL MONITOR EFFECT.
--- NOTE | 2020-03-27 22:30 | NUR ---
PRN NORCO EFFECTIVE PER PATIENT. CALL LIGHT IS WITHIN REACH.
--- NOTE | 2020-03-28 02:00 | NUR ---
SLEEPING. RESPERS EASY AND REGULAR. CALL LIGHT IS WITHIN REACH.
--- NOTE | 2020-03-28 04:30 | NUR ---
PATIENT AWAKENS EASILY FOR ADMINISTRATION OF AM MEDICATION. TOLERATED WELL, CALL LIGHT IS WITHIN REACH.
--- NOTE | 2020-03-28 07:30 | NUR ---
PT RESTING IN BED. RESPS EASY AND NON LABORED. NO S/S OF DISTRESS NOTED. VSS. WHITE BOARD UPDATED. POC DISCUSSED W PT. A/O X3. C/O RLQ AND BACK PAIN. DENIES DIARRHEA. STATES SHE CONTINUES TO HAVE DARK COFFEE GROUND STOOLS. WILL CONTINUE TO MONITOR. CALL LIGHT WITHIN REACH.
--- NOTE | 2020-03-28 09:00 | NUR ---
case management visits with patient, she states she will return home when discharged, patient denies any home needs at this time, case management will follow
--- NOTE | 2020-03-28 11:56 | NUR ---
PT C/O 11/24 ACHING RLQ/BACK PAIN. MEDICATED PER ORDER. WILL MONITOR FOR RELIEF. RESPS EASY AND NON LABORED. CALL LIGHT WITHIN REACH.
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
--- NOTE | 2020-03-28 12:56 | NUR ---
PT STATES MEDICATION MOSTLY EFFECTIVE
--- NOTE | 2020-03-28 17:34 | NUR ---
PT C/O 11/24 RLQ PAIN. MEDICATED PER ORDER. WILL MONITOR FOR RELIEF. RESPS EASY AND NON LABORED. SITTING UP IN BED AT THIS TIME. CALL LIGHT WITHIN REACH.
--- NOTE | 2020-03-28 18:30 | NUR ---
MEDICATION EFFECTIVE PER PT.
--- NOTE | 2020-03-29 02:00 | NUR ---
SLEEPING. RESPERS EASY AND REGULAR ON ROOM AIR. CALL LIGHT IS WITHIN REACH.
--- NOTE | 2020-03-29 05:11 | NUR ---
PATIENT AWAKENS EASILY FOR ADMINISTRATION OF 0600 MEDICATION. PRN NORCO GIVEN FOR LOWER ABDOMINAL PAIN RADIATING TO BACK. WILL CONTINUE TO MONITOR. CALL LIGHT IS WITHIN REACH.
--- NOTE | 2020-03-29 05:59 | NUR ---
PRN NORCO APPEARS EFFECTIVE. PARTIENT IS SLEEPING WITH EASY AND REGULAR RESPERS ON ROOM AIR. CALL LIGHT IS WITHIN REACH.
--- NOTE | 2020-03-29 06:35 | NUR ---
PATIENT C/O HOARSE THROAT AND SWELLING TO UPPER PART OF MOUTH. MOUTH IS RED AND WHITE PATCHES NOTED ON TONGUE. REQUESTED NYSTATIN SWISH AND SWALLOW. SEE NEW ORDERS.
--- NOTE | 2020-03-29 09:00 | NUR ---
case management talks with patient, she states she will return home when discharged and denies any home needs
--- NOTE | 2020-03-29 13:00 | NUR ---
CALLED DR. FLORENCE REGARDING PT C/O ALOT OF ABDOMINAL CRAMPING. SHE WAS UP TO BATHROOM WITH LOOSE STOOL AND STARTED HAVING ABD CRAMPING. HE WILL JPUT ON SOME BENTYL FOR PT.
--- NOTE | 2020-03-29 13:14 | NUR ---
PT IN BATHROOM VOMITING. MEDICATED WITH ZOFRAN IV PER PRN ORDER, SEE EMAR. RESTING BACK IN BED WITH BASIN IN HER HAND. CALL LIGHT IN REACH. WILL CON'T TO MONITOR.
--- NOTE | 2020-03-29 17:22 | NUR ---
CALLED DR FLORENCE REGARDING PT'S INR OF 2.0 AND COUMADIN STILL BEING ON HOLD. WILL LOOK AT MEDICATIONS.
--- NOTE | 2020-03-29 21:22 | NUR ---
ASSUMED CARE OF PATIENT. PATIENT IS AAOX3 RESTING IN BED WITH EASY AND REGULAR RESPERS ON ROOM AIR. ASSESSMENT IS COMPLETE WITH NO S/S OF DISTRESS NOTED AT THIS TIME. PATIENT C/O PAIN TO LOWER ABDOMEN/FLANK. PRN NORCO GIVEN AT THIS TIME AND PATIENT TOLERATED WELL. BED IS LOW, LOCKED, AND CALL LIGHT IS WITHIN REACH. WILL CONTINUE TO MONITOR, SEE INTERVENTIONS.
--- NOTE | 2020-03-29 22:00 | NUR ---
PRN MEDICATIONS APPEAR EFFECTIVE, PATIENT IS SLEEPING WITH EASY AND REGULAR RESPERS ON ROOM AIR. WILL CONTINUE TO MONITOR, SEE INTERVENTIONS.
--- NOTE | 2020-03-30 09:00 | NUR ---
case management visits with patient, she states she will be discharged home when stable, case management will follow
--- NOTE | 2020-03-30 16:30 | NUR ---
PER DR. CARTER PT IS TO BE DISCHARGED TOMORROW.
--- NOTE | 2020-03-30 20:14 | NUR ---
24 HR CHART CHECK COMPLETE
--- NOTE | 2020-03-31 17:50 | NUR ---
Discharge instructions reviewed with patient/family. Patient receptive and verbalizes understanding. Follow-up care arranged. Written instructions given to patient/family. TY KAISER
== END 2020-03-31 18:10 | disposition home or self-care (01) | DRG 372 ==
LOC: ED 05:40 → 4E 09:29 → EDHOLD 09:29 → 4E 09:40
PROVIDERS: ADMIT Student in an Organized Health Care Education/Training Program; ATTEND Student in an Organized Health Care Education/Training Program
DX: A04.71 Enterocolitis due to Clostridium difficile, recurrent (principal); K56.609 Unspecified intestinal obstruction, unspecified as to partial versus complete obstruction; K92.2 Gastrointestinal hemorrhage, unspecified; E72.12 Methylenetetrahydrofolate reductase deficiency; D68.59 Other primary thrombophilia; I50.32 Chronic diastolic (congestive) heart failure; I42.9 Cardiomyopathy, unspecified; I82.5Y9 Chronic embolism and thrombosis of unspecified deep veins of unspecified proximal lower extremity; B37.0 Candidal stomatitis; E44.0 Moderate protein-calorie malnutrition; E87.6 Hypokalemia; K21.9 Gastro-esophageal reflux disease without esophagitis; F41.9 Anxiety disorder, unspecified; G62.9 Polyneuropathy, unspecified; E66.9 Obesity, unspecified; R74.01 Elevation of levels of liver transaminase levels; I48.0 Paroxysmal atrial fibrillation; F32.9 Major depressive disorder, single episode, unspecified; J45.909 Unspecified asthma, uncomplicated; J44.9 Chronic obstructive pulmonary disease, unspecified; I25.10 Atherosclerotic heart disease of native coronary artery without angina pectoris; Z88.0 Allergy status to penicillin; Z68.35 Body mass index [BMI] 35.0-35.9, adult; Z88.8 Allergy status to other drugs, medicaments and biological substances; Z90.721 Acquired absence of ovaries, unilateral; Z90.49 Acquired absence of other specified parts of digestive tract; Z90.710 Acquired absence of both cervix and uterus; Z82.49 Family history of ischemic heart disease and other diseases of the circulatory system; Z83.6 Family history of other diseases of the respiratory system; Z90.722 Acquired absence of ovaries, bilateral; Z86.711 Personal history of pulmonary embolism; I25.2 Old myocardial infarction; Z86.19 Personal history of other infectious and parasitic diseases

== ENCOUNTER → 2020-04-12 | Outpatient (CLI) | payer MEDICARE, BC ==
[~2020-04-12] MED LIST changes: +DICYCLOMINE HCL20 MG PO; +LACTINEX 0.2 MG1 TAB PO; +NORCO 5-325 TA1 EACH PO; +VANCOMYCIN HCL250 MG PO
[2020-04-12 12:42] LABS: INTERNATIONAL NORM RATIO 3.3 (2.0-3.5)
== END | disposition home or self-care (01) ==
LOC: LAB 12:14
PROVIDERS: ATTEND Internal Medicine Cardiovascular Disease
DX: I48.91 Unspecified atrial fibrillation (principal); Z15.89 Genetic susceptibility to other disease

== ENCOUNTER → 2020-07-23 | Outpatient (CLI) | payer MEDICARE, BC ==
[2020-07-23 08:49] LABS: BASO # 0.1 10*3/uL (0.0-0.1); EOS # 0.2 10*3/uL (0.0-0.4); EOS % 3.9 % (1.0-4.0); HEMATOCRIT 39.6 % (37.0-47.0); LYMPH # 1.8 10*3/uL (1.3-4.4); LYMPH % 34.7 % (27.0-41.0); MEAN CELL VOLUME 88.2 fl (81.0-99.0); MEAN CORPUSCULAR HGB 27.2 pg (27.0-31.0); MEAN CORPUSCULAR HGB CONC 30.8 g/dl (33.0-37.0); MEAN PLATELET VOLUME 9.9 fl (9.6-12.3); MONO # 0.5 10*3/uL (0.1-1.0); MONO % 9.4 % (3.0-9.0); NEUT # 2.6 10*3/uL (2.3-7.9); NEUT % 50.8 % (47.0-73.0); PLATELET COUNT AUTOMATED 285 10*3/uL (130-400); RED BLOOD COUNT 4.49 10*6/uL (4.10-5.10); RED CELL DISTRI WIDTH 13.5 % (0-14.5); WHITE BLOOD COUNT 5.1 10*3/uL (4.8-10.8)
[2020-07-23 08:50] LABS: BILIRUBIN Negative (Negative); BLOOD Trace-Intact (Negative); CLARITY Cloudy (Clear); COLOR Yellow (Yellow); GLUCOSE Negative (Negative); KETONE Negative (Negative); LEUKO ESTERASE 2+ (Negative); NITRITE Negative (Negative); PH 5.5 (4.5-8.0); UROBILINOGEN 0.2 E.U./dl (0.0-1.0)
[2020-07-23 09:16] LABS: ALBUMIN 3.4 gm/dl (3.1-4.5); ALKALINE PHOSPHATASE 102 U/L (45-117); BUN 9 mg/dl (7-24); CHLORIDE 108 mmol/L (98-107); CHOLESTEROL 135 mg/dL (<200); CREATININE 0.82 mg/dL (0.55-1.02); HDL CHOLESTEROL 47 mg/dl (40-60); LDL CHOLESTEROL 64 mg/dL (9-159); POTASSIUM 3.6 mmol/L (3.5-5.1); SGOT/AST 17 IU/L (3-35); SGPT/ALT 27 U/L (12-78); SODIUM 142 mmol/L (136-145); TOTAL PROTEIN 7.4 gm/dL (6.4-8.2); TRIGLYCERIDES 119 mg/dl (<150); VLDL CHOLESTEROL 24 mg/dL (6-40)
[2020-07-23 10:25] LABS: BACTERIA 3+; WBC 51-100 wbc/hpf (0-5)
== END | disposition home or self-care (01) ==
LOC: LAB 07:39
PROVIDERS: ATTEND Internal Medicine
DX: I10 Essential (primary) hypertension (principal); R19.7 Diarrhea, unspecified; R53.83 Other fatigue; R35.0 Frequency of micturition

== ENCOUNTER → 2020-07-26 | Outpatient (CLI) | payer MEDICARE, BC | END | disposition home or self-care (01) | LOC: LAB 11:21 | PROVIDERS: ATTEND Internal Medicine | DX: R35.0 Frequency of micturition (principal) ==

== ENCOUNTER 2020-10-16 13:12 | Emergency (ER) | payer MEDICARE, BC ==
[~2020-10-16] VITALS: Ht 167.6 cm; Wt 107.1 kg
[2020-10-16 13:49] LABS: BASO % 0.6 % (0.0-1.0); EOS # 0.1 10*3/uL (0.0-0.4); EOS % 1.9 % (1.0-4.0); HEMATOCRIT 35.6 % (37.0-47.0); LYMPH # 1.4 10*3/uL (1.3-4.4); LYMPH % 29.3 % (27.0-41.0); MEAN CELL VOLUME 86.6 fl (81.0-99.0); MEAN CORPUSCULAR HGB 27.7 pg (27.0-31.0); MEAN PLATELET VOLUME 9.4 fl (9.6-12.3); MONO # 0.5 10*3/uL (0.1-1.0); MONO % 10.6 % (3.0-9.0); NEUT # 2.7 10*3/uL (2.3-7.9); NEUT % 57.4 % (47.0-73.0); PLATELET COUNT AUTOMATED 294 10*3/uL (130-400); RED BLOOD COUNT 4.11 10*6/uL (4.10-5.10); WHITE BLOOD COUNT 4.7 10*3/uL (4.8-10.8)
[2020-10-16 14:00] LABS: ACT PARTIAL THROMBO TIME 33.3 SECONDS (20.0-32.1); INTERNATIONAL NORM RATIO 1.8 (2.0-3.5)
[2020-10-16 14:05] LABS: ALBUMIN 3.4 gm/dl (3.1-4.5); ALKALINE PHOSPHATASE 91 U/L (45-117); BUN 13 mg/dl (7-24); CHLORIDE 105 mmol/L (98-107); CREATININE 0.96 mg/dL (0.55-1.02); POTASSIUM 3.5 mmol/L (3.5-5.1); SGOT/AST 18 IU/L (3-35); SGPT/ALT 27 U/L (12-78); SODIUM 139 mmol/L (136-145); TOTAL PROTEIN 7.1 gm/dL (6.4-8.2)
[2020-10-16 14:10] LABS: TROPONIN I < 0.015 ng/ml (<0.045)
== END 2020-10-16 21:03 | disposition home or self-care (01) ==
LOC: ED 13:12
PROVIDERS: Emergency Medicine
DX: I71.2 Thoracic aortic aneurysm, without rupture (principal); R07.89 Other chest pain; M54.6 Pain in thoracic spine; R42 Dizziness and giddiness; R51.9 Headache, unspecified; I25.2 Old myocardial infarction; Z79.01 Long term (current) use of anticoagulants; Z86.711 Personal history of pulmonary embolism; Z88.0 Allergy status to penicillin; Z88.1 Allergy status to other antibiotic agents; Z88.8 Allergy status to other drugs, medicaments and biological substances; Z79.899 Other long term (current) drug therapy; Z79.82 Long term (current) use of aspirin; Z90.49 Acquired absence of other specified parts of digestive tract; Z98.84 Bariatric surgery status; Z90.710 Acquired absence of both cervix and uterus; Z90.89 Acquired absence of other organs

== ENCOUNTER → 2022-01-08 | Outpatient (CLI) | payer MEDICARE, BC ==
[2022-01-08 07:48] LABS: BASO % 0.6 % (0.0-1.0); EOS # 0.1 10*3/uL (0.0-0.4); EOS % 2.1 % (1.0-4.0); HEMATOCRIT 39.7 % (37.0-47.0); LYMPH # 1.6 10*3/uL (1.3-4.4); LYMPH % 32.6 % (27.0-41.0); MEAN CELL VOLUME 88.6 fl (81.0-99.0); MEAN CORPUSCULAR HGB 28.6 pg (27.0-31.0); MEAN CORPUSCULAR HGB CONC 32.2 g/dl (33.0-37.0); MEAN PLATELET VOLUME 9.3 fl (9.6-12.3); MONO # 0.4 10*3/uL (0.1-1.0); MONO % 8.4 % (3.0-9.0); NEUT # 2.7 10*3/uL (2.3-7.9); NEUT % 56.3 % (47.0-73.0); PLATELET COUNT AUTOMATED 274 10*3/uL (130-400); RED BLOOD COUNT 4.48 10*6/uL (4.10-5.10); RED CELL DISTRI WIDTH 13.2 % (0-14.5); WHITE BLOOD COUNT 4.8 10*3/uL (4.8-10.8)
[2022-01-08 08:03] LABS: ALKALINE PHOSPHATASE 81 U/L (45-117); BUN 6 mg/dl (7-24); CHLORIDE 106 mmol/L (98-107); CHOLESTEROL 140 mg/dL (<200); CREATININE 0.81 mg/dL (0.55-1.02); LDL CHOLESTEROL 66 mg/dL (9-159); POTASSIUM 3.8 mmol/L (3.5-5.1); SGOT/AST 24 IU/L (3-35); SGPT/ALT 22 U/L (12-78); SODIUM 143 mmol/L (136-145); TOTAL PROTEIN 7.1 gm/dL (6.4-8.2); TRIGLYCERIDES 159 mg/dl (<150)
== END | disposition home or self-care (01) ==
LOC: LAB 07:16
PROVIDERS: Internal Medicine; ATTEND Internal Medicine Cardiovascular Disease
DX: I10 Essential (primary) hypertension (principal); E78.5 Hyperlipidemia, unspecified; R53.83 Other fatigue